=== PATIENT | female | born 2000 | race Two or more races ===

== ENCOUNTER 2020-07-01 20:29 | Emergency (ER) | payer SELFPAY ==
[~2020-07-01] VITALS: Ht 167.6 cm; Wt 81.6 kg
[2020-07-01 20:39] VITALS: BP 135/78
[2020-07-01 21:58] LABS: Urine Bacteria FEW /hpf (None Seen); Urine Blood TRACE /uL (Negative); Urine Specific Gravity 1.003 (1.001-1.035); Urine WBC 12 /hpf (0 - 5)
[2020-07-01] MEDS ORDERED: HYDROcodone-ACET 5/325MG TAB PO ONE (23:00)
== END 2020-07-01 23:32 | disposition home or self-care (01) ==
LOC: ER 20:31
DX: N39.0 Urinary tract infection, site not specified (principal)
CPT/HCPCS: 81001; 81025